=== PATIENT | female | born 1955 | race Caucasian/White ===

== ENCOUNTER 2025-09-14 11:29 | Observation (INO) | payer OTHER ==
[2025-09-09 13:13] LABS: Hemoglobin 13.6 g/dL (12.0-15.0); RBC Red Blood Cell Count 4.44 M/uL (3.86-4.86); White Blood Count 4.70 thou/uL (4.3-10.9)
[2025-09-09 13:14] LABS: Absolute Lymphocytes (CBC) 2.0 K/uL (0.7-4.9); Hematocrit 40.1 % (36.0-45.0); MCH 30.6 pg (27.0-35.0); MCHC 33.9 g/dL (32.0-36.0); MCV 90.3 fL (80-100); MPV 7.7 fL (7.6-11.3); Nucleated RBC Absolute Count 0.0 (0-0); Nucleated Red Blood Cells % 0.0 % (0-0)
[2025-09-09 13:15] LABS: Urine Microscopic Reflex YN NO UMIC
[2025-09-09 13:19] LABS: PT Prothrombin Time 13.3 SECONDS (10-13.0); Protime INR 1.18
[2025-09-09 13:26] LABS: Anion Gap 9.7 mEq/L (5.0-15.0); BUN Blood Urea Nitrogen 12.0 mg/dL (7-18); Glucose Level 109.0 mg/dL (74-106); Potassium 3.7 mEq/L (3.5-5.1)
[2025-09-14] MEDS: CEFAZOLIN SODIUM 1 GM/VIAL ONE (11:49)
[2025-09-14] MEDS: NA CHLORIDE 0.9% 100 ML ONE (11:49)
[2025-09-14] MEDS: Ringers Lactate 1,000 ML IV ONE ×2 (12:15→23:36)
[2025-09-14] MEDS: CEFAZOLIN SODIUM 2 GM/VIAL ONE (13:15)
[2025-09-14] MEDS ORDERED: MIDAZOLAM HCL 2 MG/2 ML INJ ONE (13:44)
[2025-09-14] MEDS ORDERED: LIDOCAINE 1% MPF 5 ML VIAL ONE (13:44)
[2025-09-14] MEDS ORDERED: ROCURONIUM 50 MG/5 ML VIAL IV ONE (13:44)
[2025-09-14] MEDS ORDERED: ONDANSETRON 4 MG/2 ML VIAL ONE (13:44)
[2025-09-14] MEDS ORDERED: FENTANYL CITR 100 MCG/2 ML ONE ×2 (13:44→14:57)
[2025-09-14] MEDS: VASOPRESSIN 20 UNIT/ML VIAL ONE (14:30)
[2025-09-14] MEDS: LIDOCAINE HCL/EPINEPHRINE 20 ML MDV ONE (14:40)
[2025-09-14] MEDS ORDERED: GLYCOPYRROLATE 0.2 MG/ML SYR ONE (14:49)
[2025-09-14] MEDS ORDERED: EPINEPHrine 1 MG/10 ML SYR ONE (15:07)
[2025-09-14] MEDS ORDERED: EPHEDRINE SULF 50 MG/ML VIAL ONE (15:07)
[2025-09-14] MEDS ORDERED: PROMETHAZINE 25 MG TABLET PO PRN (16:23)
[2025-09-14] MEDS ORDERED: ACETAMINOPHEN 500 MG TAB PO PRN (16:23)
[2025-09-14] MEDS ORDERED: ONDANSETRON 4 MG/2 ML VIAL IV PRN (16:23)
--- NOTE | 2025-09-14 16:30 | P.BOP ---
Preoperative diagnosis: stage 2 post wall prolapse,enterocele,perineal defect, JANEL Postoperative diagnosis: same Primary procedure: vaginal post wall, enterocele repairs w/ biol graft, noreen SSLF cx colpopexy Secondary procedure: perineorrhaphy, TVT-O cysto Cloth Bleaching Range Back Tender: Sasha Jack Estimated blood loss: 150 Specimen: none Findings: -3/-3/-5/3.5/thin/8/+1/+1/-3, cysto neg Anesthesia: General Complications: None Drain(s): Urinary catheter Implants: axis dermis graft, TVT=O Fluids & blood products: LR 1000, 100 UO Transferred to: Recovery Room Condition: Good
--- OUTSIDE RECORDS SUMMARY | 2025-09-14 16:44 | XMS REPORT | Continuity of Care Document ---
Author Name Unknown Address [address] [facility] [place] [address] [facility] [place] Address [address] [facility] [place] [address] Care Team Providers Care General Engineer Name Role Phone SPENCER CAMPBELL Primary Care Physician Unavailab TEOFILO Campbell Attending Clinician Unavailable Pob, Adc Lab Main Attending Clinician Unavailabl Teofilo Nevarez MD Attending Clinician [phone] Doctor Unassigned, [place] Attending Clinician U ERIKA Tineo Attending Clinician Unavailable 1, [facility] Attending Clinician Unavailable Problems Condition Name Condition Details Condition Category Status Onset Date Resolution Date Last Treatment Date Treating Clinician Comments Source Chronic constipati on Chronic Constipati on Problem Active 08-10 00:00: 00 [facility] Finding of sensation of urinary bladder Finding of Sensation of Urinary Bladder Problem Active 07-21 00:00: 00 [facility] Chronic idiopathic constipati on Chronic Idiopathic Constipati on Problem Active 07-21 00:00: 00 [facility] Acquired hypothyroi dism Acquired Hypothyroi dism Problem Active 07-21 00:00: 00 [facility] Hypothyroi dism Hypothyroi dism Problem Active 07-21 00:00: 00 [facility] Disorder of rectum Disorder of Rectum Problem Active - 00:00: 00 [facility] Uterovagin al prolapse Uterovagin al Prolapse Problem Active 07-21 00:00: 00 [facility] Herniation of rectum into vagina Herniation of Rectum into Vagina Problem Active - 00:00: 00 [facility] Incomplete uterovagin al prolapse Incomplete Uterovagin al Prolapse Problem Active 08-13 00:00: 00 [facility] Genuine stress incontinen ce Genuine Stress Incontinen ce Problem Active 08-13 00:00: 00 [facility] Overactive urinary bladder Overactive Urinary Bladder Problem Active 08-13 00:00: 00 [facility] Urge incontinen ce of urine Urge Incontinen ce of Urine Problem Active 07-10 00:00: 00 [facility] Atrophic vaginitis Atrophic Vaginitis Problem Active 07-10 00:00: 00 [facility] Gynecologi jovanni examinatio n abnormal Gynecologi jovanni Examinatio n Abnormal Problem Active 07-10 00:00: 00 [facility] Screening for malignant neoplasm of colon Screening for Malignant Neoplasm of Colon Problem Active 07-10 00:00: 00 [facility] Screening for osteoporos is Screening for Osteoporos is Problem Active 07-10 00:00: 00 [facility] Bipolar I disorder, single manic episode Bipolar I disorder, single manic episode Disease Active 2012-12 00:00: 00 Overview: Formattin g of this note might be different from the original. ICD10 Diagnosis Term Local Area Network Administrator Utility [facility] Adjustment disorder with anxiety Adjustment disorder with anxiety Disease Active 2012-12 00:00: 00 [facility] Allergies, Adverse Reactions, Alerts Allergy Name Allergy Type Status Severity Reaction(s) Onset Date Inactive Date Treating Clinician Comments Source NO KNOWN ALLERGIE S Drug Class Active [facility] Family History Family Member Diagnosis Comments Start Date Stop Date Sourc e Natural father Genitourinary () [facility] Natural mother No Significant Medic al Problems [facility] Father Genitourinary () [facility] Mother No Significant Medic al Problems [facility] Social History Social Habit Start Date Stop Date Quantity Comments Source Gender identity [facility] Sexual orientation [facility] History SDOH Alcohol Frequency [facility] History SDOH Alcohol Std Drinks [facility] History SDOH Alcohol Binge [facility] Alcohol intake 2024-03-27 00:00:00 2024-03-27 00:00:00 Current drinker of alcohol (finding) [facility] History of Social function 2024-03-27 00:00:00 2024-03-27 00:00:00 [facility] Exposure to SARS-CoV-2 (event) 2023-02-19 00:00:00 2023-03-01 08:13:00 Not sure [facility] Tobacco use and exposure 2022-08-24 00:00:00 2022-08-24 00:00:00 Smokeless tobacco non-user [facility] Alcohol Comment 2013-09-21 00:00:00 2013-09-21 00:00:00 occasional beer [facility] Sex Assigned At 1955 00:00:00 1955 00:00:00 [facility] Smoking Status Start Date Stop Date Source Never smoked tobacco [facility] Medications Ordered Medication Name Filled Medication Name Start Date Stop Date Current Medication? Ordering Clinician Indication Dosage Frequency Signature (SIG) Comments Components Source divalproex ER 500 mg 24 hr tablet 03-27 00:00: 00 Yes [id number] 500mg Take 1 tablet by mouth every 24 (twenty-fo ur) hours. [facility] divalproex ER 500 mg 24 hr tablet 08-16 00:00: 00 03-27 00:00 :00 No [id number] 500mg Take 1 tablet by mouth every 24 (twenty-fo ur) hours. [facility] divalproex ER 500 mg 24 hr tablet 03-01 00:00: 00 08-16 00:00 :00 No [id number] 500mg Take 1 tablet by mouth every 24 (twenty-fo ur) hours. [facility] divalproex ER 500 mg 24 hr tablet 08-24 00:00: 00 03-01 00:00 :00 No [id number] 500mg Take 1 tablet by mouth every 24 (twenty-fo ur) hours. [facility] divalproex ER 500 mg 24 hr tablet 8-06 00:00: 00 08-24 00:00 :00 No [id number] 500mg Take 1 tablet by mouth every 24 (twenty-fo ur) hours. [facility] divalproex ER 500 mg 24 hr tablet 01-11 00:00: 00 Yes [id number] 500mg Take 1 tablet by mouth every 24 (twenty-fo ur) hours. [facility] levothyroxi ne (SYNTHROID) 125 mcg tablet 07-06 17:52: 36 Yes 125ug Take 125 mcg by mouth every morning. [facility] levothyroxi ne (SYNTHROID) 125 mcg tablet 07-06 12:52: 36 Yes 125ug Take 125 mcg by mouth every morning. [facility] divalproex ER 500 mg 24 hr tablet 07-06 00:00: 00 Yes [id number] 500mg Take 1 tablet by mouth every 24 (twenty-fo ur) hours. [facility] levothyroxi ne (SYNTHROID) 125 mcg tablet 01-05 18:37: 01 Yes 125ug Take 125 mcg by mouth every morning. [facility] divalproex ER 500 mg 24 hr tablet 01-05 00:00: 00 Yes [id number] 500mg Take 1 tablet by mouth every 24 (twenty-fo ur) hours. [facility] estradiol 0.01% (0.1 mg/gram) vaginal cream (0.5 gm) as directed with applicator; three times a week; 30 days estradiol 0.01% (0.1 mg/gram) vaginal cream (0.5 gm) as directed with applicator; three times a week; 30 days No estradiol 0.01% (0.1 mg/gram) vaginal cream (0.5 gm) as directed with applicator ; three times a week; 30 days [facility] levothyroxi ne 175 mcg tablet Take 1 tablet every day by oral route. levothyroxi ne 175 mcg tablet Take 1 tablet every day by oral route. No 1 Q1D levothyrox ine 175 mcg tablet Take 1 tablet every day by oral route. [facility] solifenacin 5 mg tablet Take 1 tablet every day by oral route for 90 days. solifenacin 5 mg tablet Take 1 tablet every day by oral route for 90 days. No 1 Q1D solifenaci n 5 mg tablet Take 1 tablet every day by oral route for 90 days. [facility] Vital Signs Vital Name Observation Time Observation Value Comments S ource Body Weight 2025-08-26 00:00:00 133.4 [lb_av] [facility] BMI (Body Mass Index) 2025-08-26 00:00:00 23.6 kg/m2 [facility] Height 2025-08-26 00:00:00 63 [in_i] [facility] BP Systolic 2025-08-26 00:00:00 123 mm[Hg] [facility] BP Diastolic 2025-08-26 00:00:00 78 mm[Hg] [facility] BP Diastolic 2025-08-03 00:00:00 73 mm[Hg] [facility] Body Weight 2025-08-03 00:00:00 136.8 [lb_av] [facility] BMI (Body Mass Index) 2025-08-03 00:00:00 24.2 kg/m2 [facility] BP Systolic 2025-08-03 00:00:00 133 mm[Hg] [facility] Height 2025-08-03 00:00:00 63 [in_i] [facility] Height 2025-07-21 00:00:00 63 [in_i] [facility] BP Diastolic 2025-07-21 00:00:00 75 mm[Hg] [facility] BP Systolic 2025-07-21 00:00:00 134 mm[Hg] [facility] BMI (Body Mass Index) 2025-07-21 00:00:00 24.2 kg/m2 [facility] Body Weight 2025-07-21 00:00:00 136.8 [lb_av] [facility] Systolic blood pressure 2024-03-27 13:18:00 121 mm[Hg] [facility] Diastolic blood pressure 2024-03-27 13:18:00 70 mm[Hg] [facility] Heart rate 2024-03-27 13:18:00 77 /min [facility] Respiratory rate 2024-03-27 13:18:00 18 /min [facility] Body height 2024-03-27 13:18:00 160 cm [facility] Body weight 2024-03-27 13:18:00 60.601 kg [facility] BMI 2024-03-27 13:18:00 23.67 kg/m2 [facility] Systolic blood pressure 2023-08-16 13:15:00 121 mm[Hg] [facility] Diastolic blood pressure 2023-08-16 13:15:00 74 mm[Hg] [facility] Heart rate 2023-08-16 13:15:00 57 /min [facility] Respiratory rate 2023-08-16 13:15:00 18 /min [facility] Body height 2023-08-16 13:15:00 162.6 cm [facility] Body weight 2023-08-16 13:15:00 63.05 kg [facility] BMI 2023-08-16 13:15:00 23.86 kg/m2 [facility] Systolic blood pressure 2023-03-01 13:15:00 139 mm[Hg] [place] [facility] Diastolic blood pressure 2023-03-01 13:15:00 83 mm[Hg] [place] [facility] Heart rate 2023-03-01 13:15:00 62 /min [facility] Respiratory rate 2023-03-01 13:15:00 19 /min [facility] Body height 2023-03-01 13:15:00 162.6 cm [facility] Body weight 2023-03-01 13:15:00 63.05 kg [facility] BMI 2023-03-01 13:15:00 23.86 kg/m2 [facility] pressure 2022-08-24 14:54:00 126 mm[Hg] [facility] Diastolic blood pressure 2022-08-24 14:54:00 77 mm[Hg] [place] [facility] Heart rate 2022-08-24 14:54:00 56 /min [facility] Respiratory rate 2022-08-24 14:54:00 18 /min [facility] Body height 2022-08-24 14:54:00 162.6 cm [facility] Body weight 2022-08-24 14:54:00 63.05 kg [facility] BMI 2022-08-24 14:54:00 23.86 kg/m2 [facility] Systolic blood pressure 2020-01-11 18:44:00 111 mm[Hg] [facility] Diastolic blood pressure 2020-01-11 18:44:00 74 mm[Hg] [facility] Heart rate 2020-01-11 18:44:00 66 /min [facility] Respiratory rate 2020-01-11 18:44:00 17 /min [facility] Body weight 2020-01-11 18:44:00 66.679 kg [facility] BMI 2020-01-11 18:44:00 25.23 kg/m2 [facility] Systolic blood pressure 2019-07-06 17:51:00 120 mm[Hg] [facility] Diastolic blood pressure 2019-07-06 17:51:00 77 mm[Hg] [facility] Heart rate 2019-07-06 17:51:00 70 /min [facility] Respiratory rate 2019-07-06 17:51:00 17 /min [facility] Body weight 2019-07-06 17:51:00 65.772 kg [facility] BMI 2019-07-06 17:51:00 24.89 kg/m2 [facility] Body height 2019-01-05 18:37:00 162.6 cm [facility] Procedures Procedure Date / Time Performed Performing Clinician Source US TRANSVAGINAL 2025-07-23 00:00:00 [facility] CONSENT/REFUSAL FOR DIAGNOSIS AND TREATMENT 2022-08-24 14:47:56 Doctor Unassigned, [place] [facility] CONSENT/REFUSAL FOR DIAGNOSIS AND TREATMENT 2022-08-24 14:47:56 Doctor Unassigned, [place] [facility] ASSIGNMENT OF BENEFITS 2020-07-11 17:26:18 Docto r Unassigned, Hollins [facility] PATIENT FINANCIAL POLICY 2020-01-11 18:58:45 Doctor Unassigned, [place] [facility] NO SHOW OR MISSED APPOINTMENT POLICY ACKNOWLEDGEMENT 2020-01-11 18:39:22 Doctor Unassigned, [place] [facility] NO SHOW OR MISSED APPOINTMENT POLICY ACKNOWLEDGEMENT 2020-01-11 18:39:22 Doctor Unassigned, [place] [facility] CONSENT/REFUSAL FOR DIAGNOSIS AND TREATMENT 2019-07-06 17:48:33 Doctor Unassigned, [place] [facility] CONSENT/REFUSAL FOR DIAGNOSIS AND TREATMENT 2019-07-06 17:48:33 Doctor Unassigned, [place] [facility] ASSIGNMENT OF BENEFITS 2019-07-06 17:48:20 Docto r Unassigned, [place]ins [facility] ASSIGNMENT OF BENEFITS 2019-07-06 17:48:20 Docto r Unassigned, [place]ins [facility] Thyroidectomy [facility] Medical Encounters Start Date/Time End Date/Time Encounter Type Admission Type Attending [facility] Care Department Encounter ID Source 2025-08-26 00:00:00 2025-08-26 00:00:00 JULIEN Hunter: [address], [address], [place] [phone] , Ph. [facility] GC_GCBZW_Id ruslan De La Rosa* [id number] [facility] 2025-08-10 00:00:00 2025-08-10 00:00:00 Sharron Tiwari MD: [address], [place] [phone] , Ph. [facility] - GC_GCBZW_Christy De La Rosa* [id number] [facility] 2025-08-03 00:00:00 2025-08-03 00:00:00 Sharron Tiwari MD: [address], [place] [phone] , Ph. [facility] GC_GCBZW_Id ruslan De La Rosa* [id number] [facility] 2025-07-29 00:00:00 2025-07-29 00:00:00 Sharron Tiwari MD: [address], [place] [phone] , Ph. [facility] - GC_GCBZW_La ruslan Rj* [id number] [facility] 2025-07-23 00:00:00 2025-07-23 00:00:00 Sharron Tiwari MD: [address], [place] [phone] , Ph. [facility] - GC_GCBZW_Christy mercer Rj* [id number] [facility] 2025-07-21 00:00:00 2025-07-21 00:00:00 Sharron Tiwari MD: [address], [place] [phone] , Ph. [facility] - GC_GCBZW_Christy mercer Rj* [id number] [facility] 2024-03-27 08:15:00 2024-03-27 08:15:00 Outpatient TEOFILO RUIZ [facility] [id number] [facility] 2024-03-27 00:00:00 2024-03-27 00:00:00 Travel 1.2.840.1 [id number] 3.104.2.7 .3.529552 .8 1..840.114 350.1.13.[id number] [facility] 2023-08-20 14:45:00 2023-08-20 15:00:00 Workers Compensation Paralegal Visit Pob, Adc Lab Teofilo Belcher [facility] 1.2.840.114 350.1.13.10 4.2.7.2.[id number] [facility] 2023-08-20 14:45:00 2023-08-20 14:45:00 Outpatient Claribel PALMER TEOFILO [facility] [id number] [facility] 2023-08-16 08:15:00 2023-08-16 08:15:00 Outpatient Claribel PALMER TEOFILO [facility] [id number] [facility] 2023-08-16 00:00:00 2023-08-16 00:00:00 Travel 1.2.840.1 [id number] 3.104.2.7 .3.715311 .8 1.2.840.114 350.1.13.[id number] [facility] 2023-08-14 00:00:00 2023-08-14 00:00:00 Travel 1.2.840.1 [id number] 3.104.2.7 .3.931116 .8 1.2.840.114 350.1.13.10 [address]7.3[id number] [facility] 2023-03-01 08:15:00 2023-03-01 08:35:44 Outpatient Claribel PALMER TEOFILO [facility] [id number] [facility] 2023-03-01 00:00:00 2023-03-01 00:00:00 Travel 1.2.840.1 [id number] 3.104.2.7 .3.699568 .8 1.2.840.114 350.1.13.[id number] [facility] 2023-02-27 00:00:00 2023-02-27 00:00:00 Travel 1.2.840.1 [id number] 3.104.2.7 .3.893497 .8 1.2.840.114 350.1.13.[id number] [facility] 2022-08-24 10:15:00 2022-08-24 10:15:00 Outpatient TEOFILO RUIZ [facility] [id number] [facility] 2022-08-24 00:00:00 2022-08-24 00:00:00 Orders Only Doctor Unassigned, [place] 1.2.840.1 [id number] 3.104.2.7 .3.013127 .[id number] [facility] 2022-08-23 00:00:00 2022-08-23 00:00:00 Travel 1.2.840.1 [id number] 3.104.2.7 .3.880738 .8 1.2.840.114 350.1.13.[id number] [facility] 2021-07-07 11:15:00 2021-07-07 11:15:00 Outpatient TEOFILO RUIZ [facility] [id number] [facility] 2021-03-10 10:10:00 2021-03-10 10:10:00 Outpatient ERIKA VERDUZCO [facility] [id number] [facility] 2021-02-15 10:10:00 2021-02-15 10:10:00 Outpatient ERIKA VERDUZCO [facility] [id number] [facility] 2021-01-06 10:45:00 2021-01-06 10:45:00 Outpatient TEOFILO RUIZ [facility] [id number] [facility] 2020-07-11 12:45:00 2020-07-11 12:45:00 Outpatient TEOFILO RUIZ [facility] [id number] [facility] 2020-07-11 00:00:00 2020-07-11 00:00:00 Orders Only Doctor Unassigned, [place]ins [facility] 1.2.840.114 350.1.13.10 4.2.7.2.[id number] [facility] 2020-01-11 00:00:00 2020-01-11 00:00:00 Orders Only Doctor Unassigned, [place] 1.2.840.1 90633.1.1 3.104.2.7 .3.779761 .[id number] [facility] 2019-07-07 11:19:25 2019-07-07 11:34:25 Workers Compensation Paralegal Visit 1, Adc Lab Teofilo Palmer [facility] 1.2.840.114 350.1.13.10 4.2.7.2.[id number] [facility] 2019-07-07 11:15:00 2019-07-07 11:15:00 Outpatient R TEOFILO PALMER [facility] [id number] [facility] 2019-07-06 00:00:00 2019-07-06 00:00:00 Orders Only Doctor Unassigned, [place] 1.2.840.1 [id number] 3.104.2.7 .3.017801 .[id number] [facility] Results Test Description Test Time Test Comments Results Result Co mments Source Izabel Lauraalysis, [id number] 15:18:09* Test Item Value Reference Range Interpretation Comme nts Leukocytes (test code = Leukocytes) Negative Nitrite (test code = Nitrite) negative Urobilinogen (test code = Urobilinogen) Normal Protein (test code = Protein) Negative pH (test code = pH) 6.0 Blood (test code = Blood) Negative Specific [place] (test code = Specific [place]) 1.010 Ketone (test code = Ketone) Negative Bilirubin (test code = Bilirubin) Negative Glucose (test code = Glucose) Negative Appearance (test code = Appearance) Clear Color (test code = Color) Yellow Izabel Lauraalysis, [id number] 11:19:58* Test Item Value Reference Range Interpretation Comme nts Leukocytes (test code = Leukocytes) Negative Nitrite (test code = Nitrite) negative Urobilinogen (test code = Urobilinogen) Normal Protein (test code = Protein) Negative pH (test code = pH) 7.0 Blood (test code = Blood) Negative Specific [place] (test code = Specific [place]) 1.010 Ketone (test code = Ketone) Negative Bilirubin (test code = Bilirubin) Negative Glucose (test code = Glucose) Negative Appearance (test code = Appearance) Clear Color (test code = Color) Yellow [facility] Date/Time Note Provider Source 2023-08-20 14:45:00 Formatting of this n ote is different from the original. Images from the original note were not included. Venipuncture collection performed by clean technique on the left anticubitus. Total of 1 attempts were made. Slight pressure and a bandage/dressing were applied to the site(s). The patient experienced no complications. The following specimens were processed according to instructions and sent to [facility] laboratories per lab order on 08/20/2023 : LT BLUE SST RED 1 LAV PPT DK GREEN (LiHep) DK GREEN (SodH) GROSS DK BLUE (K2) DK BLUE (S) ACD Blood Culture NIPT/NTD [facility]
[2025-09-14] MEDS ORDERED: MORPHINE 4 MG/ML SYR IV PRN (17:00)
[2025-09-14 17:05] VITALS: O2SAT 98
[2025-09-14 18:23] VITALS: BMI 23.6
[2025-09-14] MEDS: Ringers Lactate 1,000 ML IV SCH (18:26)
[2025-09-14] MEDS: FLU (Fluarix) 25-26 (6MOS UP)/PF 45 MCG/0.5 ML Syringe IM ONE (18:45)
--- NOTE | 2025-09-15 02:03 | OP ---
Date of Procedure: 09/14/2025 Surgeon: Sharron Tiwari MD Preoperative Diagnoses: Stage II posterior wall defect, significant enterocele, perineal defect, and stress urinary incontinence. Postoperative Diagnoses: Stage II posterior wall defect, significant enterocele, perineal defect, an d stress urinary incontinence, apical uterine prolapse. Procedures Performed: 1. Bilateral posterior approach sacrospinous ligament fixation, cervical colpopexy. 2. Posterior wall and enterocele repairs with biologic graft. 3. Perineal body defect repair (perineorrhaphy), transobturator mid urethral sling (tension-free vagi nal tape-obturator). 4. Cystoscopy. Anesthesia: General endotracheal. Estimated Blood Loss: 150. Urine Output: 100. Fluids: Ringer's lactate 1000. Specimens: No specimens. Complications: No complications. Drains: Graham catheter and vaginal packing. Findings: Pop-Q -3, -3, -5, 3.5, 10, 8, +1, +1, -3. More significant enterocele and a site-specific distal left lateral wall defect as well. Rectal exam was negative after the colpopexy and then cyst oscopy was negative for any foreign body or trauma. Both ureteric orifices were noted and were paten t. Indications: The patient is a 70-year-old who was symptomatic from her posterior wall prolapse with defecatory dysfunction and stress urinary incontinence. She was evaluated with ultrasound, cystoscop y, urodynamics, and counseled on the different options including a pessary and surgical repair. Also , observation and pelvic floor rehab. She wanted to proceed with her surgical repair. She has done Kegel's and this has not helped and has had progressive prolapse symptoms. After she was re-verified in the preoperative area for pre informed consent, she was taken back to the OR. All questions and answers were done to their satisfaction before she was taken back. Description Of Procedure: She was placed in a supine fashion on the operating table, general anesthe darrian was given. She was placed in a dorsal lithotomy position using Alonso stirrups. Lower abdomen, b oth inner upper thighs, vulva, vagina, and perineum were prepped and draped in a sterile fashion. A self-retaining retractor was fixed and Graham catheter was placed to drain the bladder and clamped wit sandy King and retracted superiorly. On assessment, the Pop-Q was as dictated above and it was clear that there needed to be a posterior wall repair and a posterior apical fixation as well, suture the e nterocele, and the detachment of the connective tissue to the perineal body as well as the apex. Posterior repair: Dilute vasopressin 20 units was injected in the distal posterior wall and the annie sarwat area, in the midline of the proximal posterior wall. Then, later 10 mL or 6 mL of 1% lidocaine with epinephrine was also injected. Then, a jj-shaped incision was made in distal posterior wal l along the perineal body. Epithelium on the perineum and the vaginal epithelium were excised. Then , flaps were raised on either side opening up the perineal body structures, the distal posterior wall connective tissue, and also exposing the defect in the left lateral wall to the sulcus as well as to the perineum. Then, proximally dissection was carried to open the enterocele. Enterocele dissection: The enterocele was dissected clearly all the way to the level of the posterio r cervix on the pericervical ring. There was a clear attachment of the distal posterior wall on the proximal half of the posterior wall. Once the enterocele was completely dissected on both sides and the connective tissue was exposed in the distal posterior wall, enterocele was repaired from side-to- side using 3-0 Monocryl sutures x4. Posterior wall repair continued. The posterior defect connective tissue was sutured though the detac hment was from the left sulcus with a continuous running 2-0 PDS. Sacrospinous ligament fixation cervical colpopexy: The ischial spine was dissected. Once it was pal pated, by sweeping medial and posterior to the ischial spine towards the coccyx, the sacrospinous lig ament was cleaned up and the bowel was swept medially on both sides. Once this was done and clearly the sacrospinous ligament was exposed, a Capio device was taken with Prolene sutures and placed in th e mid ligament on the anterior surface of the ligament without encircling it with good bites. Rectal exam was done. No trauma to the rectum was noted and these were held on Christine clamps. Osmar denney ed. The cervix and the pericervical ring were dissected in the midline and then the attached distal utero sacral ligament remnants were also held with Christine clamps after dissection. Once these were exposed, 2-0 PDS sutures were placed on all 3 of them and held on clamps. The biologic graft was then taken and it was trimmed into a Y-shaped graft with the stem of 3 cm and the top of 3 cm in the midline, 3 cm wide in the bottom half, and then 8 cm wide between the spine. This was then soaked according to package directions. The 3-0 PDS sutures at the apex were sutured to it and tied down. Then, the sac rospinous sutures were hooked onto it with horacio stitches and tied on the ligament carefully without extra tension. Posterior wall repair continued. The graft was placed on the repaired enterocele and then onto the p osterior wall and distally the stem of the Y was sutured on all sides starting on the left lateral si de coming down distally attaching the graft to the posterior fascia or rectovaginal connective tissue and then going on to the right lateral aspect. Continuous running 2-0 PDS was used. Once this was completed, there was a good coverage for all the defect and there was an excellent lift at the apex. Perineal body repair: A 2-0 Vicryl was used in 2 layers. Interrupted 3 stitches to reconstruct the perineal body and then the vaginal epithelium was closed in pull-down technique from side to side wit h 2-0 Vicryl and 3-0 Vicryl was used to close the perineum itself in 2 layers and subcuticular suture to close the skin. Rectal exam is negative on the distal wall as well as on both sacrospinous ligam ent sites. Mid urethral area was picked up with 2 Allis clamps, injected with 1% lidocaine mixed with 1:100,000 epinephrine, 10 mL was injected. Midline incision was made through the epithelium connective tissue, the fascia. There was ipsilateral obturator space. Space was created, tunnels were created and aft er perforating obturator membrane, the tunnel was expanded by pulling this is out open. Then, wing g uide was placed. The TVT-O needle along with the dilator was passed through this and after turning, hugging the inferior pubic ramus, and exiting at a place 2 cm lateral to the groin fold and above the level of the external urethral orifice, the exit points were made with a 15 blade and dilators and t he needle were pulled out. The dilator was held with a clamp and needle removed from inside. Nikolai gunderson on both sides were taken that is slightly above than another, but avoiding the adductor long us tendon. Both exit sites were carefully maneuvered. Then, mesh was tensioned in the midline using Metzenbaum scissors just adequately tensioned and the mesh was left in place pulling out the plastic sheaths. Mesh was trimmed, flushed with the skin. Skin was closed with Dermabond. After irrigatio n of the sling in the midline, closed with continuous running 3-0 Vicryl in a locked fashion. Graham was removed, cystoscopy was performed with a 17-Maori sheath, 30-degree lens normal saline. There w ere excellent jets of urine from both ureteric orifices. No evidence of any trauma to the bladder ex amining the sides of the internal urethral meatus carefully. Then, rest of the bladder was unremarka ble. Bladder was drained Graham was replaced. Packing was placed. The patient was recovered from an esthesia and taken to PACU in stable condition after counts x3 were correct. She will follow up in 1 week postop. She will have a voiding trial in the morning, removal of packing, and then discharged tomorrow morning. NAM/KORY Voice ID: [id number] Report ID: [id number]
[2025-09-15] MEDS: LEVOTHYROXINE SOD 0.075 MG TAB PO SCH (06:28)
[2025-09-15] MEDS: LEVOTHYROXINE SOD 0.1 MG TAB PO SCH (06:28)
[2025-09-15] MEDS ORDERED: HOME MED 1 EA UNK (Levothyroxine Sodium [Synthroid] 175 MCG Tablet) PO SCH (09:00)
[2025-09-15 09:07] VITALS: TEMP 98.2
[2025-09-15 12:11] VITALS: BP 124/69
== END 2025-09-15 16:54 | disposition home or self-care (01) ==
LOC: OR 11:29 → 4TH 16:23
PROVIDERS: ADMIT Obstetrics & Gynecology; ATTEND Obstetrics & Gynecology
PROC: 0TSD0ZZ Reposition Urethra, Open Approach (ICD-10-PCS; 2025-09-14)
PROC: 0JUC0JZ Supplement of Pelvic Region Subcutaneous Tissue and Fascia with Synthetic Substitute, Open Approach (ICD-10-PCS; 2025-09-14)
PROC: 0JUC0JZ Supplement of Pelvic Region Subcutaneous Tissue and Fascia with Synthetic Substitute, Open Approach (ICD-10-PCS; 2025-09-14)
PROC: 0USG7ZZ Reposition Vagina, Via Natural or Artificial Opening (ICD-10-PCS; principal; 2025-09-14 13:00)
DX: N81.2 Incomplete uterovaginal prolapse (principal); N39.3 Stress incontinence (female) (male); R39.14 Feeling of incomplete bladder emptying; N81.81 Perineocele
CPT/HCPCS: 93005; 85025; 80048; 36415; 86900; 86850; 85610; 86901; 85730; 81003; 57282; 57288; 57250; 57267 ×2; J2704; J2003; J2250; J3010 ×2; J1100; J2405; J7120 ×3; J0690; C1771; A4314; J0169